=== PATIENT | female | born 1955 | race Two or more races ===

== ENCOUNTER 2019-05-28 20:23 | Inpatient (IN) | payer OTHER ==
[~2019-05-28] VITALS: Ht 165.1 cm; Wt 65.3 kg
--- NOTE | 2019-05-28 20:54 | NUR ---
XIOMY FROM HOME TO ER BED 3, AAOX4. NO RESP DISTRESS NOTED, BREATHING EVEN AND UNLABORED. AMBULATORY. C/O EPIGASTRIC PAIN NON RADIATING SINCE 1600. RATES PAIN 8/10 CRAMPING AND SQUEEZING SENSATION INTERMITENT. PT REPORTS NAUSEA AND HAD VOMITING SINCE IT STARTED. MD AT BEDSIDE FOR EVAL. AWAITING ORDERS. IV LINE OBATIEND ON THE R AC W/ 20G. BLOOD DRAWN AND GIVEN TO DIRECTOR RADIATION ONCOLOGY AT BEDSIDE. EMT AT BEDSIDE FOR EKG
[2019-05-28 21:03] LABS: APPEARANCE,URINE Slightly Cloudy (CLEAR); BILIRUBIN,URINE Negative (NEGATIVE); BLOOD, URINE Negative Ery/uL (NEGATIVE); COLOR,URINE Yellow (YELLOW); KETONES,URINE 15 (NEGATIVE); LEUKOCYTE ESTERASE ,URINE Negative (NEGATIVE); NITRITE, URINE Negative (NEGATIVE); PH,URINE 8.5 (5.0-8.0); PROTEIN,URINE Trace mg/dl (NEGATIVE); UGLUCOSE Negative (NEGATIVE)
[2019-05-28 21:07] LABS: BASOPHILS % (AUTO) 0.2 % (0.0-2.0); EOSINOPHILS % (AUTO) 1.3 % (0.0-6.0); HEMATOCRIT 43 % (33-45); HEMOGLOBIN 14.1 g/dL (11.5-14.8); LYMPHOCYTES # (AUTO) 2.3 /CMM (0.8-4.8); LYMPHOCYTES % (AUTO) 21.4 % (20.0-44.0); MEAN CORPUSCULAR HGB CONC 33 g/dl (31.0-36.0); MEAN CORPUSCULAR VOLUME 95 fL (82-100); MONOCYTES # (AUTO) 0.5 /CMM (0.1-1.30); MONOCYTES % (AUTO) 4.5 % (2.0-12.0); NEUTROPHILS # (AUTO) 7.9 /CMM (1.8-8.9); NEUTROPHILS % (AUTO) 72.6 % (43.0-81.0); PLATELET COUNT (AUTO) 345 /CMM (150-450); RED BLOOD CELL COUNT(AUTO) 4.46 MIL/uL (4.0-5.2); WHITE BLOOD COUNT (AUTO) 10.9 K/uL (4.3-11.0)
[2019-05-28 21:17] LABS: BACTERIA,URINE Few /HPF (None Seen); RBC,URINE 0-2 /HPF (0-2); SQUAMOUS EPITHELIAL CELL,UR Rare /HPF (None Seen); WBC,URINE 0-2 /HPF (0-3)
[2019-05-28] MEDS ORDERED: ONDANSETRON HCL/PF 4 MG/2 ML VIAL ONE (21:26)
[2019-05-28] MEDS ORDERED: PANTOPRAZOLE 40 MG VIAL ONE (21:26)
[2019-05-28] MEDS ORDERED: MORPHINE SULFATE INJ 2 MG/ML DISP.SYRIN ONE (21:26)
[2019-05-28] MEDS ORDERED: PANTOPRAZOLE 40 MG VIAL IV ONE (21:30)
[2019-05-28] MEDS ORDERED: MORPHINE SULFATE INJ 2 MG/ML DISP.SYRIN IV ONE (21:30)
[2019-05-28] MEDS ORDERED: ONDANSETRON HCL/PF - ER 4 MG/2 ML VIAL IV ONE (21:30)
[2019-05-28 21:32] LABS: CALCIUM, SERUM 9.5 mg/dL (8.5-10.1); CREATININE 0.8 mg/dL (0.6-1.3); POTASSIUM 3.7 mmol/L (3.5-5.1)
[2019-05-28 21:38] LABS: ALBUMIN 3.8 g/dL (3.4-5.0); BILIRUBIN,DIRECT 0.2 mg/dL (0.0-0.2); BILIRUBIN,TOTAL 1.8 mg/dL (0.2-1.0); TOTAL PROTEIN, SERUM 7.4 g/dL (6.4-8.2)
--- NOTE | 2019-05-28 22:32 | NUR ---
CALLED FOR MS BED
--- NOTE | 2019-05-28 22:39 | NUR ---
RECIEVED BED 205-1
--- NOTE | 2019-05-28 22:46 | NUR ---
REPORT GIVEN TO JENNIFER BOYER FOR SARAI
--- NOTE | 2019-05-28 22:57 | NUR ---
Vikas pennington in [facility] - 05/28/19 at 2302 by YAEL REPORT GIVEN TO JENNIFER FRAZIER FOR SARAI
[2019-05-28 23:10] VITALS: BP 117/82
--- NOTE | 2019-05-28 23:10 | NUR ---
RN MS ADMITTING NOTES RECEIVED PATIENT FROM ER VIA [facility] SAFELY TRANSFERRED TO BED PATIENT WAS ABLE TO AMBULATE STEADY. AT THIS TIME STATES PAIN IS TOLERABLE AND DOES NEED PAIN MEDICATION. IV SITE TO RIGHT AC #20G INTACT AND PATENT, NO REDNESS,NO INFILTRATION PRESENT, ORIENTED TO STAFF AND CALL LIGHT AND KEPT WITHIN REACH, PATIENT DENIES ANY SKIN ISSUES. BELONGINGS LIST DONE. ALL NEEDS ATTENDED AT THIS TIME WILL CONTINUE TO MONITOR AND ATTEND TO NEEDS.
--- NOTE | 2019-05-28 23:11 | NUR ---
PT TRANSPRTED TO UNIT ON GURNEY WITH EMT AT BEDSIDE. PT IS STABLE FOR TRANSPORT. NAD NOTED. PT AMBULATED FROM GURNEY TO BED
[2019-05-28] MEDS ORDERED: MORPHINE SULFATE INJ 2 MG/ML DISP.SYRIN IV PRN (23:30)
[2019-05-28] MEDS ORDERED: ONDANSETRON HCL/PF 4 MG/2 ML VIAL IVP PRN (23:30)
[2019-05-28] MEDS: IV D5/0.45 NACL 1,000 ML IV PRN (23:32)
[2019-05-29] VITALS (11 sets, daily range): BP systolic 97–118; BP diastolic 54–76
[2019-05-29] MEDS ORDERED: ATOR20TA PO (03:04)
[2019-05-29] MEDS ORDERED: ASPI-605 PO (03:04)
--- NOTE | 2019-05-29 05:13 | NUR ---
JENNIFER MS NOTES PATIENT REFUSED TO BE CHANGED HAVE LINENS CHANGED AND REFUSED TO HAVE LABS DRAWN AT THIS TIME, PER PATIENT STATES " WANT TO LEFT ALONE AND DO LABS LATER?" Addendum: 05/29/19 at 2702 by ROSALIND LIMA RN DISREGARD NOTE WRONG ENTRY
[2019-05-29 06:26] LABS: BASOPHILS % (AUTO) 0.1 % (0.0-2.0); EOSINOPHILS % (AUTO) 1.1 % (0.0-6.0); HEMATOCRIT 37 % (33-45); HEMOGLOBIN 12.6 g/dL (11.5-14.8); LYMPHOCYTES # (AUTO) 1.9 /CMM (0.8-4.8); LYMPHOCYTES % (AUTO) 29.1 % (20.0-44.0); MEAN CORPUSCULAR HGB CONC 34 g/dl (31.0-36.0); MEAN CORPUSCULAR VOLUME 94 fL (82-100); MONOCYTES # (AUTO) 0.4 /CMM (0.1-1.30); NEUTROPHILS # (AUTO) 4.2 /CMM (1.8-8.9); NEUTROPHILS % (AUTO) 63.7 % (43.0-81.0); PLATELET COUNT (AUTO) 285 /CMM (150-450); RED BLOOD CELL COUNT(AUTO) 3.99 MIL/uL (4.0-5.2); WHITE BLOOD COUNT (AUTO) 6.6 K/uL (4.3-11.0)
[2019-05-29 06:51] LABS: BILIRUBIN,TOTAL 1.8 mg/dL (0.2-1.0); CALCIUM, SERUM 8.6 mg/dL (8.5-10.1); CREATININE 0.8 mg/dL (0.6-1.3); MAGNESIUM 2.1 mg/dL (1.8-2.4); PHOSPHORUS 3.7 mg/dL (2.5-4.9); POTASSIUM 3.8 mmol/L (3.5-5.1)
[2019-05-29 06:52] LABS: THYROID STIMULATING HORMONE 3.583 uIU/mL (0.358-3.74)
--- NOTE | 2019-05-29 06:56 | NUR ---
RN MS CLOSING NOTES PATIENT IN BED SLEEPING BUT EASILY AROUSABLE RESPIRATIONS EVEN AND UNLABORED WITH EQUAL RISE AND FALL OF CHEST, DENIES ANY PAIN AT THIS TIME, IV SITE TO RIGHT AC #20 G INTACT AND PATENT, IVF RUNNING ORDERED, NPO STATUS, SAFETY PRECAUTIONS IN PLACE, LOW BED AND LOCKED, ALL NEEDS ATTENDED , CALL LIGHT KEPT WITHIN REACH, WILL CONTINUE TO MONITOR AND ATTEND TO NEEDS.
--- NOTE | 2019-05-29 07:15 | NUR ---
RN MS OPENING NOTES RECEIVED PATIENT ASLEEP IN BED, AROUSABLE TO VERBAL AND TACTILE STIMULI. HOB ELEVATED. DENIES ANY C/O PAIN NOR DISCOMFORT AT THSI TIME. NO SOB. REMAINS NPO. RIGHT AC #20 G INTACT AND PATENT INFUSING NS D5 1/2 NS @ 75 ML/HR. BED IN LOWEST POSITION, LOCKED. BED SIDERAILS UP X2. CALL LIGHT WITHIN REACH.
[2019-05-29] MEDS: ATORVASTATIN 10 MG TABLET PO SCH (09:00)
[2019-05-29] MEDS: ASPIRIN EC 81 MG TABLET.DR PO SCH (09:00)
--- NOTE | 2019-05-29 09:00 | NUR ---
MS RN NOTES PATIENT SEEN BY DR. RASHAWN MD ASSESSED PATIENT, EXPLAINED EGD PROCEDURE AND OBTAINED CONSENT.
[2019-05-29] MEDS: PANTOPRAZOLE 40 MG VIAL IV SCH (09:32)
[2019-05-29] MEDS: IV D5/0.45 NACL 1,000 ML IV PRN (11:56)
--- NOTE | 2019-05-29 13:15 | NUR ---
MS RN NOTES PATIENT OFF UNIT, WENT TO OR.
[2019-05-29] MEDS ORDERED: FENTANYL PF 100MCG/2ML AMPUL ONE (13:25)
--- NOTE | 2019-05-29 14:30 | NUR ---
MS RN NOTES RECEIVED REPORT FROM JENNIFER WILSON OR PER KATIE PER DR. MOROCHO, RESUME PREVIOUS ORDER AND REGULAR DIET. PATIENT DENIES C/O PAIN NOR DISCOMFORT AT THIS TIME.
--- NOTE | 2019-05-29 16:52 | NUR ---
Patient is alert and oriented. lives locally with her family. She is ambulatory and independent with adl's. No DME or homehealth reported. Has good family support. She goes to [facility] in [place] for pcp f/u. Addendum: 05/29/19 at 1652 by BARBARA OBRIEN RN Amended: Links added.
--- NOTE | 2019-05-29 19:04 | NUR ---
RN MS CLOSING NOTES ALERT AND ORIENTED X4. NO S/S OF RESPIRATORY DISTRESS. DENIES AHNY C/O PAIN NOR DISCOMFORT AT THIS TIME. NOE REGULAR DIET WELL WITHOUT ANY PROBLEMS. RIGHT AC #20 SL AND LEFT HAND # 22 INTACT AND PATENT INFUSING NS D5 1/2 NS @ 75 ML/HR. BED IN LOWEST POSITION, LOCKED. BED SIDERAILS UP X2. CALL LIGHT WITHIN REACH. IN NO APPARENT DISTRESS.
--- NOTE | 2019-05-29 20:00 | NUR ---
MS2/RN PATIENT IS IN BED AWAKE, ALERT, ORIENTED, COMFORTABLE, NO C/O PAIN, NO DISTRESS NOTED, CALL LIGHT IN REACH. WILL MONITOR.
--- NOTE | 2019-05-30 01:23 | NUR ---
MS2/RN PATIENT IS SLEEPING AT THIS TIME, APPEAR COMFORTABLE, NO SIGNS OF DISTRESS NOTED, CALL LIGHT IN REACH. WILL MONITOR.
--- NOTE | 2019-05-30 06:31 | NUR ---
MS2/RN PATIENT IS STILL SLEEPING AT THIS TIME, APPEAR COMFORTABLE, NO SIGNS OF DISTRESS NOTED, CALL LIGHT IN REACH. ALL NEEDS ATTENDED AT THIS TIME, WILL CONTINUE TO MONITOR.
--- NOTE | 2019-05-30 07:05 | NUR ---
RN MS OPENING NOTES RECEIVED PATIENT RESTING COMFORTABLY IN BED, ALERT AND AWAKE. HOB ELEVATED. DENIES ANY C/O PAIN NOR DISCOMFORT AT THIS TIME. DENIES ANY C/O PAIN NOR DISCOMFORT AFTER MEALS AND FLUID INTAKE. NO C/O N/V. NO SOB. RIGHT AC SL #20 G AND LEFT HAND # 22 INTACT AND PATENT INFUSING NS D5 1/2 NS @ 75 ML/HR. BED IN LOWEST POSITION, LOCKED. BED SIDERAILS UP X2. CALL LIGHT WITHIN REACH.
[2019-05-30 08:00] VITALS: BP 101/55
[2019-05-30] MEDS: ATORVASTATIN 10 MG TABLET PO SCH (09:07)
[2019-05-30] MEDS: ASPIRIN EC 81 MG TABLET.DR PO SCH (09:07)
[2019-05-30] MEDS: PANTOPRAZOLE 40 MG VIAL IV SCH (09:08)
[2019-05-30] MEDS ORDERED: OMEP40CA13 PO (10:04)
[2019-05-30] MEDS ORDERED: SUCR1ORA4 PO (10:04)
[2019-05-30] MEDS ORDERED: INFLUENZA VACCINE 2019-20 0.5 ML DISP.SYRIN IM ONE (11:00)
--- NOTE | 2019-05-30 11:37 | NUR ---
Received consult for food/diet education. Noted s/p EGD on 05/29/19, gastritis, esophagitis. pt currently on regular diet. RN and [employer]KER at bedside. Provided diet education to pt with handouts. Pt verbalized understanding. Noted MD order to discharge pt home today.
--- NOTE | 2019-05-30 11:58 | NUR ---
MS RN NOTE PATIENT CHANGED HER MIND , DECIDED TO GET THE FLU VACCINE ELSEWHERE, FLU VACCINE NOT ADMINISTERED.
--- NOTE | 2019-05-30 12:00 | NUR ---
RN MS DISCHARGE NOTES ALERT AND ORIENTED X4. DENIES ANY C/O PAIN NOR DISCOMFORT DURING AND AFTER MEAL AND FLUID INTAKE. DIET EDUCATION AND HAND OUT GIVEN BY DIETITIAN. NO C/O N/V. NO S/S OF RESPIRATORY DISTRESS. IV ACCESS CATHETER REMOVED WITH CATHETER TIP INTACT. DISCHARGE INSTRUCTIONS, PACKET AND EDUCATION GIVEN AND PROVIDED TO PATIENT. ALL BELONGINGS ACCOUNTED FOR. PATIENT PICKED UP BY SON AND WAS IN A HURRY TO GO HOME. PATIENT AMBULATORY WITH STEADY GAIT. PATIENT LEFT IN STABLE CONDITION.
== END 2019-05-30 12:00 | disposition home or self-care (01) | DRG 241 ==
LOC: ER 20:28 → MEDSG2 22:52
PROVIDERS: ADMIT Nurse Practitioner Acute Care; ATTEND Internal Medicine
PROC: 0DB68ZX Excision of Stomach, Via Natural or Artificial Opening Endoscopic, Diagnostic (ICD-10-PCS; principal; 2019-05-29)
DX: K29.70 Gastritis, unspecified, without bleeding (principal); R17 Unspecified jaundice; E78.5 Hyperlipidemia, unspecified; K21.0 Gastro-esophageal reflux disease with esophagitis; R73.9 Hyperglycemia, unspecified; K44.9 Diaphragmatic hernia without obstruction or gangrene; R74.8 Abnormal levels of other serum enzymes
CPT/HCPCS: 36415; 71045-TC; 76705-TC; 80048-TC; 80053-TC; 80061-TC; 80076-TC; 81000-TC; 83690-TC; 83735-TC; 84100-TC; 84443-TC; 85025-TC; 85730-TC; 86850-TC; 87081-TC; 88305-TC; 88313-TC; 88342; C9113; G0378; J2270; J2405; J3010; J3490